=== PATIENT | female | born 1990 | race Caucasian/White ===

== ENCOUNTER 2018-05-30 18:12 | Emergency (ER) | payer SELFPAY ==
[~2018-05-30] VITALS: Ht 167.6 cm; Wt 102.3 kg
[~2018-05-30 18:12] MED LIST: AMOXICILLIN 8751 TAB PO; MACROBID 1100 MG/CAP PO; MOTRIN 200200 MG/TAB PO; NO HOME MEDICATIONS; NORCO 325 MG-51 TAB PO; TRIAMCINOLONE A15 GM TP; ZOFRAN ODT4 MG PO; ZOVIRAX 200MG200 MG PO
[2018-05-30 18:29] VITALS: BP 108/68; TEMP 98.2
[2018-05-30] MEDS ORDERED: CRUTCHES MC (19:57)
[2018-05-30] MEDS ORDERED: NORCO 325 MG-51 TAB PO (19:57)
[2018-05-30 20:32] VITALS: PULSE 82
== END 2018-05-30 20:35 | disposition home or self-care (01) ==
LOC: COL.ER 18:12
DX: S99.921A Unspecified injury of right foot, initial encounter (principal); S92.351A Displaced fracture of fifth metatarsal bone, right foot, initial encounter for closed fracture; W18.30XA Fall on same level, unspecified, initial encounter

== ENCOUNTER 2018-10-13 14:04 | Emergency (ER) | payer SELFPAY ==
[~2018-10-13] VITALS: Ht 167.6 cm; Wt 102.3 kg
[~2018-10-13 14:04] MED LIST changes: +CRUTCHES MC
[2018-10-13 14:18] VITALS: BP 121/60; TEMP 98.1
[2018-10-13] MEDS ORDERED: NIZORAL CR 30GM TOP (14:42)
[2018-10-13 14:50] VITALS: PULSE 90
== END 2018-10-13 14:50 | disposition home or self-care (01) ==
LOC: COL.ER 14:04
DX: B35.8 Other dermatophytoses (principal); Z88.5 Allergy status to narcotic agent

== ENCOUNTER 2018-11-03 16:24 | Emergency (ER) | payer SELFPAY ==
[~2018-11-03] VITALS: Ht 167.6 cm; Wt 104.5 kg
[~2018-11-03 16:24] MED LIST changes: +NIZORAL CR 30GM TOP
[2018-11-03 16:29] VITALS: BP 123/70; TEMP 97.8
[2018-11-03 16:42] LABS: COLLECTION METHOD CLEAN CATCH
[2018-11-03 16:48] LABS: MUCOUS Present /lpf; PH 5 (5-8); SQUAMOUS EPITHELIAL 0-2 /hpf; URINE APPEARANCE Clear; URINE BACTERIA None Seen /hpf; URINE BILIRUBIN Negative (NEGATIVE); URINE BLOOD Negative (NEGATIVE); URINE COLOR Yellow; URINE GLUCOSE Negative (NEGATIVE); URINE KETONE Negative (NEGATIVE); URINE LEUKOCYTE ESTERASE Negative (NEGATIVE); URINE NITRATE Negative (NEGATIVE); URINE PROTEIN(semi-quant) Negative (NEGATIVE); URINE RBC 0-2 /hpf; URINE UROBILINOGEN Negative (NEGATIVE)
[2018-11-03] MEDS ORDERED: MULTI VITAMINS1 TAB PO (16:57)
[2018-11-03 17:10] LABS: BASO # 0.1 (0.0-0.2); BASO % 0.8 % (0.0-2.0); EOS # 0.3 (0.0-0.7); EOS % 2.9 % (0-4.0); GRAN # 5.7 (1.4-6.5); GRAN % 53.2 % (42.2-75.2); HEMATOCRIT 39.7 % (37.0-47.0); HEMOGLOBIN 13.2 g/dl (12.5-16.0); LYMPH # 3.9 (1.2-3.4); LYMPH % 37.1 % (20.0-51.0); MEAN CELL VOLUME 92 fl (80.0-100.0); MEAN CORPUSCULAR HEMOGLOBIN 30 pg (27.0-31.0); MEAN CORPUSCULAR HGB CONC 33 g/dl (33.0-37.0); MEAN PLATELET VOLUME 9.4 fl (7.4-10.4); MONO # 0.6 (0.1-0.6); MONO % 5.8 % (1.7-9.3); PLATELET COUNT 318 K/mm3 (130-400); RED BLOOD COUNT 4.34 M/mm3 (4.10-5.30); REDCELL DISTRIBUTION WIDTH-CV 11.6 % (11.5-14.5)
[2018-11-03 17:41] LABS: ALBUMIN 4.1 gm/dL (3.5-5.0); BILIRUBIN,TOTAL 0.2 mg/dL (0.0-1.0); CREATININE, serum 0.77 mg/dL (0.52-1.25); POTASSIUM 3.8 mmol/L (3.4-5.0); TOTAL PROTEIN 7.7 gm/dL (6.4-8.2)
[2018-11-03] MEDS ORDERED: ZOFRAN 4MG T4 MG/TAB PO (17:59)
[2018-11-03] MEDS ORDERED: AMOXICILLIN 50500 MG PO (17:59)
[2018-11-03 18:18] VITALS: PULSE 93
== END 2018-11-03 18:18 | disposition home or self-care (01) ==
LOC: COL.ER 16:24
PROVIDERS: Emergency Medicine
DX: H60.92 Unspecified otitis externa, left ear (principal)

== ENCOUNTER 2019-04-09 20:44 | Emergency (ER) | payer SELFPAY ==
[~2019-04-09] VITALS: Ht 167.6 cm; Wt 100.9 kg
[~2019-04-09 20:44] MED LIST changes: +AMOXICILLIN 50500 MG PO; +MULTI VITAMINS1 TAB PO; +ZOFRAN 4MG T4 MG/TAB PO
[2019-04-09 21:06] VITALS: BP 115/70; PULSE 106; TEMP 98.7
[2019-04-09 22:51] LABS: COLLECTION METHOD CLEAN CATCH
[2019-04-09 22:58] LABS: MUCOUS Present /lpf; PH 5 (5-8); URINE APPEARANCE Hazy; URINE BACTERIA None Seen /hpf; URINE BILIRUBIN Negative (NEGATIVE); URINE BLOOD Negative (NEGATIVE); URINE COLOR Yellow; URINE GLUCOSE Negative (NEGATIVE); URINE KETONE Negative (NEGATIVE); URINE LEUKOCYTE ESTERASE Negative (NEGATIVE); URINE NITRATE Negative (NEGATIVE); URINE PROTEIN(semi-quant) Negative (NEGATIVE); URINE UROBILINOGEN Negative (NEGATIVE)
[2019-04-09] MEDS ORDERED: BACTRIM DS 8001 TAB PO (23:46)
== END 2019-04-10 00:20 | disposition home or self-care (01) ==
LOC: COL.ER 20:44
PROVIDERS: Nurse Practitioner
DX: L73.9 Follicular disorder, unspecified (principal); F15.10 Other stimulant abuse, uncomplicated; Z98.51 Tubal ligation status; Z88.6 Allergy status to analgesic agent; Z86.19 Personal history of other infectious and parasitic diseases

== ENCOUNTER 2019-04-16 08:04 | Emergency (ER) | payer SELFPAY ==
[~2019-04-16] VITALS: Ht 167.6 cm; Wt 100.9 kg
[~2019-04-16 08:04] MED LIST changes: +BACTRIM DS 8001 TAB PO
[2019-04-16 08:08] VITALS: TEMP 98
[2019-04-16 08:23] LABS: COLLECTION METHOD CLEAN CATCH
[2019-04-16 08:40] LABS: MUCOUS Present /lpf; PH 5 (5-8); SQUAMOUS EPITHELIAL 20-50 /hpf; URINE APPEARANCE Cloudy; URINE BACTERIA Rare /hpf; URINE BILIRUBIN Negative (NEGATIVE); URINE BLOOD Negative (NEGATIVE); URINE COLOR Yellow; URINE GLUCOSE Negative (NEGATIVE); URINE KETONE Negative (NEGATIVE); URINE LEUKOCYTE ESTERASE 1+ (NEGATIVE); URINE NITRATE Negative (NEGATIVE); URINE PROTEIN(semi-quant) Negative (NEGATIVE); URINE UROBILINOGEN Negative (NEGATIVE)
[2019-04-16 08:42] LABS: BASO # 0.1 (0.0-0.2); BASO % 0.5 % (0.0-2.0); EOS # 0.2 (0.0-0.7); EOS % 1.8 % (0-4.0); GRAN % 49.3 % (42.2-75.2); HEMATOCRIT 42.2 % (37.0-47.0); HEMOGLOBIN 13.7 g/dl (12.5-16.0); LYMPH # 4.2 (1.2-3.4); LYMPH % 41.2 % (20.0-51.0); MEAN CELL VOLUME 93 fl (80.0-100.0); MEAN CORPUSCULAR HEMOGLOBIN 30 pg (27.0-31.0); MEAN CORPUSCULAR HGB CONC 33 g/dl (33.0-37.0); MEAN PLATELET VOLUME 9.7 fl (7.4-10.4); MONO # 0.7 (0.1-0.6); MONO % 6.9 % (1.7-9.3); PLATELET COUNT 322 K/mm3 (130-400); RED BLOOD COUNT 4.53 M/mm3 (4.10-5.30); REDCELL DISTRIBUTION WIDTH-CV 11.9 % (11.5-14.5)
[2019-04-16 08:54] LABS: ALANINE AMINOTRANSFERASE < 6 U/L (9-52); ALBUMIN 3.9 gm/dL (3.5-5.0); ALKALINE PHOSPHATASE 92 U/L (50-136); ANION GAP 9 mmol/L (7-16); AST,SGOT 17 U/L (15-37); BILIRUBIN,TOTAL 0.3 mg/dL (0.0-1.0); BLOOD UREA NITROGEN 19 mg/dL (7-17); C-REACTIVE PROTEIN 0.8 mg/dL (0.0-0.9); CALCIUM 8.6 mg/dL (8.4-10.2); CARBON DIOXIDE 23 mmol/L (22-30); CHLORIDE 109 mmol/L (98-107); CREATININE, serum 0.86 (0.52-1.25); GLUCOSE 91 mg/dL (74-106); LIPASE 113 U/L (23-300); POTASSIUM 3.9 mmol/L (3.4-5.0); SODIUM 141 mmol/L (137-145); TOTAL PROTEIN 7.5 gm/dL (6.4-8.2)
[2019-04-16] MEDS ORDERED: MACROBID 1100 MG/CAP PO (10:46)
[2019-04-16] MEDS ORDERED: ZOFRAN 4MG T4 MG/TAB PO (10:46)
[2019-04-16] MEDS ORDERED: NORCO 325 MG-51 TAB PO (11:21)
[2019-04-16 11:38] VITALS: BP 103/66; PULSE 62
== END 2019-04-16 11:45 | disposition home or self-care (01) ==
LOC: COL.ER 08:04
PROVIDERS: Physician Assistant
DX: N39.0 Urinary tract infection, site not specified (principal); R11.2 Nausea with vomiting, unspecified
CPT/HCPCS: J1170; J2270; J2405; J2550; J7030; Q9967

== ENCOUNTER 2019-07-12 05:06 | Day surgery (SDC) | payer OTHER ==
[2019-07-12] VITALS (12 sets, daily range): BP systolic 97–114; BP diastolic 54–68; PULSE 65–88; TEMP 97.1–98.5
[~2019-07-12] VITALS: Ht 167.6 cm; Wt 106.0 kg
[2019-07-12] MEDS ORDERED: MOTRIN 200200 MG/TAB PO (05:47)
[2019-07-12] MEDS ORDERED: PERCOCET 325 MG1 TA2 PO (10:11)
[2019-07-12] MEDS ORDERED: MOTRIN 800800 MG/TAB PO (10:11)
--- NOTE | 2019-07-12 14:25 | NUR ---
1400 PATIENT AMBULATE TO BATHRROM, TOLERATE ACTIVITY WELL. SITS UP IN BED EATING HAYLEE CRACKERS AND GRAPE JUICE.
[2019-07-13] VITALS (8 sets, daily range): BP systolic 102–135; BP diastolic 56–79; PULSE 62–94; TEMP 98–98.6
--- NOTE | 2019-07-13 09:32 | NUR ---
INT REMOVED. DISCHARGE INSTRUCTIONS REVIEWED WITH PATIENT. SCRIPT FOR PERCOCET GIVEN AND EXPLAINED. PATIENT RESTING IN BED WAITING FOR A RIDE HOME.
--- NOTE | 2019-07-13 10:45 | NUR ---
Patient calls out crying and states she is having pain. This nurse in room. Patient unsettled and states she is having pain under her ribs bilaterally and up in her shoulder and neck on the right side. Patient states that she feels like she can't take a deep breath. Rates pain a 10. VS 135/79, pulse 88, temp 98.0, spo2 99%, respirations 28. Lungs clear bilaterally. Abdomen soft, non distended. Dr. Allan called with report of patient complaint. patient denies feeling pain in her abdomen or pelvis. Patient has been coughing this AM but states the Robitussin given has helped. VS reported to Dr. Allan. Verbal order from Dr. Allan to give 2 Percocet tablets now, 2 tablets of Simethicone, and order cough drops for patient. Patient may not leave at this time until Dr. Allan rounds on her.
--- NOTE | 2019-07-13 10:52 | NUR ---
1052: Patient states the pain is better. Rates the pain in her neck and shoulder a 6 and the pain under her ribs a 3. Patient sitting up in bed. Patient given percocet and simethicone per Dr. Allan order. VS 116/74, pulse 75, spo2 97% on room air, respiratory rate 20.
--- NOTE | 2019-07-13 11:15 | NUR ---
1100: SpO2 98% On room air. 1115: Dr. Allan at bedside. patient states the pain is much better, rating it a 4 in shoulders and neck. Scant amount of vaginal bleeding noted on peripad. VS 115/67, pulse 69, respirations 18, spo2 96%. Verbal order from Dr. Allan to place SCD's. SCD's on and running. This nurse asks Dr. Allan if we should do incentive spirometer. Dr. Allan states to not do incentive spirometer. Patient states cough has been better after robitussin. Dr. Allan states to discontinue doing vitals. Dr. Allan states patient needs to ambulate and may discharge home later in afternoon.
--- NOTE | 2019-07-13 12:25 | NUR ---
stopped by but nothing needed at this time.
--- NOTE | 2019-07-13 13:05 | NUR ---
Patient awake from nap. States her pain is much better, rating it a 2 in just her right shoulder. Patient up and ambulates to bathroom then out in [facility]. Patient back to bed resting. VS stable.
--- NOTE | 2019-07-13 13:05 | NUR ---
SPO2 98% ON ROOM AIR
== END 2019-07-13 16:50 | disposition home or self-care (01) ==
LOC: SDCO 05:06 → OB 10:45 → SDCO 07-13 16:50
DX: N80.0 Endometriosis of uterus (principal); N83.8 Other noninflammatory disorders of ovary, fallopian tube and broad ligament; N88.8 Other specified noninflammatory disorders of cervix uteri; N94.6 Dysmenorrhea, unspecified; Z82.5 Family history of asthma and other chronic lower respiratory diseases; Z82.49 Family history of ischemic heart disease and other diseases of the circulatory system; Z82.3 Family history of stroke; Z88.8 Allergy status to other drugs, medicaments and biological substances; G47.33 Obstructive sleep apnea (adult) (pediatric)
CPT/HCPCS: OP; A4314; J0690; J1100; J1170; J2405; J2704; J2710; J3010; J7120

== ENCOUNTER 2019-12-14 23:15 | Emergency (ER) | payer SELFPAY ==
[~2019-12-14] VITALS: Ht 167.6 cm; Wt 104.5 kg
[~2019-12-14 23:15] MED LIST changes: +MOTRIN 800800 MG/TAB PO; +PERCOCET 325 MG1 TA2 PO
[2019-12-14 23:21] VITALS: BP 118/74
[2019-12-15] MEDS ORDERED: FLEXERIL 1010 MG/TAB PO (03:04)
[2019-12-15 03:36] VITALS: PULSE 104; TEMP 98
== END 2019-12-15 03:36 | disposition home or self-care (01) ==
LOC: COL.ER 23:15
DX: R07.89 Other chest pain (principal); R05 Cough; Z79.1 Long term (current) use of non-steroidal anti-inflammatories (NSAID)

== ENCOUNTER 2020-04-08 17:16 | Emergency (ER) | payer SELFPAY ==
[~2020-04-08] VITALS: Ht 167.6 cm; Wt 113.6 kg
[~2020-04-08 17:16] MED LIST changes: +FLEXERIL 1010 MG/TAB PO
== END 2020-04-08 17:35 | disposition left against medical advice (07) ==
LOC: COL.ER 17:16
DX: U07.1 COVID-19 (principal)

== ENCOUNTER 2020-05-01 23:48 | Emergency (ER) | payer SELFPAY ==
[~2020-05-01] VITALS: Ht 167.6 cm; Wt 109.1 kg
[2020-05-02 00:01] VITALS: BP 111/80; TEMP 98.3
[2020-05-02 01:41] VITALS: PULSE 78
== END 2020-05-02 01:36 | disposition home or self-care (01) ==
LOC: COL.ER 23:48
DX: S93.601A Unspecified sprain of right foot, initial encounter (principal); W10.1XXA Fall (on)(from) sidewalk curb, initial encounter; Y92.009 Unspecified place in unspecified non-institutional (private) residence as the place of occurrence of the external cause
CPT/HCPCS: Q4045

== ENCOUNTER 2020-06-25 19:18 | Emergency (ER) | payer SELFPAY ==
[~2020-06-25] VITALS: Ht 167.6 cm; Wt 104.5 kg
[2020-06-25 19:30] VITALS: BP 112/76; TEMP 98.2
[2020-06-25 20:20] LABS: STREP SCREEN POSITIVE
[2020-06-25] MEDS ORDERED: AMOXICILLIN 50500 MG PO (20:23)
[2020-06-25 20:48] VITALS: PULSE 67
== END 2020-06-25 20:45 | disposition home or self-care (01) ==
LOC: COL.ER 19:18
PROVIDERS: Physician Assistant
DX: J02.0 Streptococcal pharyngitis (principal); Z20.828 Contact with and (suspected) exposure to other viral communicable diseases; Z90.710 Acquired absence of both cervix and uterus; Z83.3 Family history of diabetes mellitus; Z88.6 Allergy status to analgesic agent

== ENCOUNTER 2020-12-21 15:00 | Emergency (ER) | payer OTHER ==
[~2020-12-21] VITALS: Ht 167.6 cm; Wt 102.7 kg
[2020-12-21 15:08] VITALS: TEMP 97.8
[2020-12-21 15:54] LABS: BASO # 0.1 (0.0-0.2); BASO % 0.5 % (0.0-2.0); EOS # 0.1 (0.0-0.7); EOS % 1.2 % (0-4.0); GRAN # 7.5 (1.4-6.5); GRAN % 65.1 % (42.2-75.2); HEMATOCRIT 41.5 % (37.0-47.0); HEMOGLOBIN 13.4 g/dl (12.5-16.0); LYMPH # 3.2 (1.2-3.4); LYMPH % 27.7 % (20.0-51.0); MEAN CELL VOLUME 95 fl (80.0-100.0); MEAN CORPUSCULAR HEMOGLOBIN 31 pg (27.0-31.0); MEAN CORPUSCULAR HGB CONC 32 g/dl (33.0-37.0); MEAN PLATELET VOLUME 9.5 fl (7.4-10.4); MONO # 0.6 (0.1-0.6); MONO % 5.2 % (1.7-9.3); PLATELET COUNT 395 K/mm3 (130-400); RED BLOOD COUNT 4.38 M/mm3 (4.10-5.30); REDCELL DISTRIBUTION WIDTH-CV 12.4 % (11.5-14.5)
[2020-12-21 16:03] LABS: ALANINE AMINOTRANSFERASE 15 U/L (4-34); ALBUMIN 4.1 gm/dL (3.5-5.0); ALKALINE PHOSPHATASE 90 U/L (50-136); ANION GAP 10 mmol/L (7-16); AST,SGOT 22 U/L (15-37); BILIRUBIN,TOTAL 0.3 mg/dL (0.0-1.0); BLOOD UREA NITROGEN 15 mg/dL (7-17); CARBON DIOXIDE 25 mmol/L (22-30); CHLORIDE 106 mmol/L (98-107); CREATININE, serum 0.81 (0.52-1.25); GLUCOSE 100 mg/dL (74-106); POTASSIUM 4.1 mmol/L (3.4-5.0); SODIUM 141 mmol/L (137-145); TOTAL PROTEIN 8.2 gm/dL (6.4-8.2)
[2020-12-21 16:18] LABS: TROPONIN-I < 0.012 ng/mL (0.000-0.035)
[2020-12-21 17:28] LABS: STREP SCREEN NEGATIVE
[2020-12-21 18:34] LABS: TRICYCLIC ANTIDEPRESS URINE NEGATIVE
[2020-12-21 19:01] VITALS: BP 126/77; PULSE 74
== END 2020-12-21 19:02 | disposition home or self-care (01) ==
LOC: COL.ER 15:00
PROVIDERS: Nurse Practitioner
DX: F41.9 Anxiety disorder, unspecified (principal); R07.9 Chest pain, unspecified; F15.10 Other stimulant abuse, uncomplicated; F90.9 Attention-deficit hyperactivity disorder, unspecified type; Z20.822 Contact with and (suspected) exposure to COVID-19; Z88.6 Allergy status to analgesic agent
CPT/HCPCS: J2060; J7030

== ENCOUNTER 2021-03-31 17:54 | Emergency (ER) | payer SELFPAY ==
[~2021-03-31] VITALS: Ht 167.6 cm; Wt 102.3 kg
[2021-03-31] MEDS ORDERED: DOXYCYCLINE 10100 MG PO (19:43)
[2021-03-31 20:10] VITALS: BP 106/76; PULSE 81; TEMP 97.7
== END 2021-03-31 20:10 | disposition home or self-care (01) ==
LOC: COL.ER 17:54
DX: S93.401A Sprain of unspecified ligament of right ankle, initial encounter (principal); X50.1XXA Overexertion from prolonged static or awkward postures, initial encounter

== ENCOUNTER 2021-04-06 20:25 | Emergency (ER) | payer SELFPAY ==
[~2021-04-06] VITALS: Ht 167.6 cm; Wt 104.5 kg
[~2021-04-06 20:25] MED LIST changes: +DOXYCYCLINE 10100 MG PO
[2021-04-06 20:33] VITALS: TEMP 97.1
[2021-04-06] MEDS ORDERED: NORCO 325 MG-51 TAB PO (21:53)
[2021-04-06 22:16] VITALS: BP 123/68; PULSE 68
== END 2021-04-06 22:30 | disposition home or self-care (01) ==
LOC: COL.ER 20:25
DX: M25.561 Pain in right knee (principal)

== ENCOUNTER 2021-06-25 17:38 | Emergency (ER) | payer SELFPAY ==
[~2021-06-25] VITALS: Ht 170.2 cm; Wt 100.9 kg
[2021-06-25 18:19] VITALS: BP 117/81; PULSE 77; TEMP 98
== END 2021-06-25 20:55 | disposition home or self-care (01) ==
LOC: COL.ER 17:38
DX: S93.402A Sprain of unspecified ligament of left ankle, initial encounter (principal); X50.9XXA Other and unspecified overexertion or strenuous movements or postures, initial encounter

== ENCOUNTER 2021-09-08 22:59 | Emergency (ER) | payer SELFPAY ==
[~2021-09-08] VITALS: Ht 167.6 cm; Wt 100.0 kg
[2021-09-09 00:44] VITALS: BP 102/80; PULSE 88; TEMP 99.2
== END 2021-09-09 00:45 | disposition home or self-care (01) ==
LOC: COL.ER 22:59
DX: U07.1 COVID-19 (principal); S93.402A Sprain of unspecified ligament of left ankle, initial encounter; Z88.6 Allergy status to analgesic agent; X58.XXXA Exposure to other specified factors, initial encounter

== ENCOUNTER 2022-02-24 20:29 | Emergency (ER) | payer SELFPAY ==
[~2022-02-24] VITALS: Ht 167.6 cm; Wt 102.3 kg
[2022-02-24 20:32] VITALS: BP 133/87; TEMP 98.2
[2022-02-24] MEDS ORDERED: FAMVIR 500500 MG/TAB PO (21:34)
[2022-02-24] MEDS ORDERED: ATARAX 25MG25 MG/TAB PO ×2 (21:34→21:38)
[2022-02-24] MEDS ORDERED: PREDNISONE20 MG PO (21:34)
[2022-02-24 21:45] VITALS: PULSE 75
== END 2022-02-24 21:50 | disposition home or self-care (01) ==
LOC: COL.ER 20:29
DX: B00.1 Herpesviral vesicular dermatitis (principal); L73.9 Follicular disorder, unspecified; Z28.310 Unvaccinated for COVID-19